=== PATIENT | female | born 1985 | race Caucasian/White ===

== ENCOUNTER 2018-09-20 21:15 | Emergency (ER) | payer BC ==
--- NOTE | 2018-09-20 22:15 | CT ---
CT Brain WO Con HISTORY: Slurred speech COMPARISON: None. FINDINGS: The ventricular and cisternal system is within normal limits. There are no signs of any hem orrhage or extra-axial fluid collections. The mastoid air cells and visualized sinuses are clear. IMPRESSION: No acute intracranial abnormalities.
== END 2018-09-20 23:02 | disposition home or self-care (01) ==
LOC: ERS 21:15
DX: R47.81 Slurred speech (principal); R51 Headache; F41.9 Anxiety disorder, unspecified; Z79.899 Other long term (current) drug therapy
CPT/HCPCS: 70450; 94760

== ENCOUNTER 2019-11-19 08:01 | Outpatient (CLI) | payer BC ==
--- NOTE | 2019-11-19 09:11 | RAD ---
XR Lumbar Spine Min 4 View History: Low back pain Comparison: None. Findings: 5 number bearing lumbar type vertebrae. Suture is noted on the left hemiabdomen. Impression surgical clips. No acute fracture or malalignment. No significant facet arthrosis. No abnormal translation with flexi on or extension. Impression: No abnormal translation with flexion or extension.
--- NOTE | 2019-11-19 09:49 | RAD ---
CERVICAL SPINE 6 VIEWS: HISTORY: Neck pain with radiculopathy. Postop. FINDINGS: There are anterior fusion changes at the C5-6 level with anterior screws and interbody implant with i nterbody fusion. Posterior spondylosis at this level does appear to mildly encroach into the spinal canal. The other disk spaces are preserved. The vertebral bodies otherwise maintain normal height and align ment. Mild degenerative change otherwise noted. IMPRESSION: Postoperative changes at C5-6. Mild degenerative changes as described. POS: OFF
--- NOTE | 2019-11-19 11:14 | CT ---
CT CERVICAL SPINE: Axial tomograms obtained with multiplanar reconstruction. INDICATION: Cervical pain with radiculopathy. FINDINGS: Postoperative changes are noted at C5-6. Interbody implant with interbody fusion. An anterior plate with screws transfix C5 and C6 vertebrae. The other vertebral bodies maintain height and alignment. The disk spaces are otherwise preserved. C2-3: Central disk bulge and/or small central protrusion abuts the anterior cord. No foraminal sten osis. C3-4: A broad-based disk bulge which is more pronounced centrally mildly impinges on the anterior co rd. This appears to produce slight compression of the cord on the axial view. There may be small ce ntral protrusion present. C4-5: There is a mild disk bulge effacing the anterior subarachnoid space. No cord impingement. No central canal or foraminal stenosis. C5-6: Postop effusion changes. There is posterior spondylosis with a small spur projecting in the m idline which appears to abut the anterior cord in the midline. No evidence of significant central ca nal or foraminal stenosis. C6-7: Mild disk bulge and spondylosis. The canal is not as well evaluated due to artifact from the shoulders. No definite central canal or foraminal stenosis. C7-T1: No evidence of significnat abnormality. IMPRESSION: 1. Central disk bulge and/or protrusions at C2-3 and C3-4 abut the cord as described above. 2. Fusion changes with posterior spondylosis and small spur abutting the cord at C5-6 as described. POS: OFF
--- NOTE | 2019-11-19 12:27 | MRI ---
MRI CERVICAL SPINE WITH AND WITHOUT CONTRAST: Date: 11/19/2019 INDICATION: Cervical radiculopathy. Prior cervical fusion. FINDINGS: Cervical vertebra maintain height and alignment. Postop changes at C5-6. The hardware at C5-6 is deli neated on CT cervical spine. Please refer to the accompanying CT cervical spine exam. The cervical vertebral maintain normal signal. C2-3: There is central disc protrusion which is appreciated on CT. This effaces the anterior subarac hnoid space on the MRI, but does not impinge on the cord as seen on MRI. CT suggested abutment of the anterior cord, but this is not confirmed on MRI. C3-4: Small central protrusion at C3-4 also corresponds to the CT findings. The findings at C3-4 saleh s produce mild cord impingement. C4-5: No significant disc bulge or protrusion. No central canal or foraminal stenosis. C5-6: Postoperative changes. Artifact at this level obscures detail. Mild spondylosis seen at this l evel on CT with a tiny spur noted on CT. C6-7: MRI confirms a disc bulge at C6-7 which is not well appreciated on CT due to artifact. The ann marie tral disc bulge effaces the anterior subarachnoid space, but does not significantly impinge on the co rd. Cord signal is normally preserved. IMPRESSION: 1. Small protrusion posterior at C3-4 abuts the anterior cord. 2. The central disc bulge/protrusion at C6-7 is seen on MRI. This is not appreciated on CT due to ar tifact. No cord impingement or central canal stenosis. 3. Small central protrusion at C2-3 does not impinge on the cord on MRI. POS: OFF
[2019-11-19] MEDS ORDERED: Magnevist 469MG/ML 20 ML VIAL ONE (13:58)
== END 2019-11-19 08:02 | disposition home or self-care (01) ==
LOC: TBSIIMAG 08:01 → MRI 08:02
PROVIDERS: ATTEND Surgery
DX: M47.22 Other spondylosis with radiculopathy, cervical region (principal); Z98.1 Arthrodesis status
CPT/HCPCS: 72050; 72110; 72125; 72156; A9579